=== PATIENT | female | born 1980 | race Caucasian/White ===

== ENCOUNTER 2022-08-09 19:18 | Emergency (ER) | payer OTHER ==
[~2022-08-09] VITALS: Ht 160 cm; Wt 79.5 kg
[2022-08-09 20:04] VITALS: BP 156/96
== END 2022-08-09 22:36 | disposition home or self-care (01) ==
LOC: ER 19:18
DX: S81.012A Laceration without foreign body, left knee, initial encounter (principal); E11.9 Type 2 diabetes mellitus without complications; Z91.018 Allergy to other foods; X58.XXXA Exposure to other specified factors, initial encounter; Y93.9 Activity, unspecified; Y92.89 Other specified places as the place of occurrence of the external cause; Y99.8 Other external cause status
CPT/HCPCS: 12002; 73564; 99284; A6258; A6449

== ENCOUNTER 2022-08-21 17:34 | Emergency (ER) | payer OTHER ==
[~2022-08-21] VITALS: Ht 160 cm; Wt 79.9 kg
[2022-08-21 17:37] VITALS: BP 164/98
== END 2022-08-21 18:51 | disposition left against medical advice (07) ==
LOC: ER 17:34
DX: Z48.00 Encounter for change or removal of nonsurgical wound dressing (principal); Z53.21 Procedure and treatment not carried out due to patient leaving prior to being seen by health care provider
CPT/HCPCS: 99281